=== PATIENT | female | born 1990 | race American Indian/Alaskan Native ===

== ENCOUNTER 2018-03-18 03:11 | Outpatient (CLI) | payer MEDICAID ==
[2018-03-18] MEDS ORDERED: VISTARIL PO ONE (03:52)
[2018-03-18 08:55] VITALS: BP 133/78
== END 2018-03-18 04:25 | disposition home or self-care (01) ==
LOC: TRG 03:11
PROVIDERS: ATTEND Obstetrics & Gynecology
DX: O47.1 False labor at or after 37 completed weeks of gestation (principal); O99.513 Diseases of the respiratory system complicating pregnancy, third trimester; J45.909 Unspecified asthma, uncomplicated; Z3A.39 39 weeks gestation of pregnancy
CPT/HCPCS: 59025; Q0177